=== PATIENT | male | born 1955 | race Caucasian/White ===

== ENCOUNTER 2016-08-13 10:44 | Emergency (ER) | payer OTHER ==
[~2016-08-13] VITALS: Ht 185.4 cm; Wt 109.6 kg
[2016-08-13 12:34] LABS: HEMATOCRIT 43.8 % (38.0-50.0); MCH 29.2 PG (29.0-34.0); MCHC 33.6 G/DL (30.0-36.0); MCV 86.9 FL (86-99); MEAN PLAT.VOLUME 10.3 uM^3 (9.0-12.4); PLATELET COUNT 255 K/uL (156-360); RBC DIS.WIDTH-SD 40.7 % (39-53); RED BLOOD COUNT 5.04 M/uL (4.00-5.50); WHITE BLOOD COUNT 8.3 K/uL (4.1-10.2)
[2016-08-13 12:45] LABS: CHLORIDE 107 mEq/L (99-109); POTASSIUM 4.1 mEq/L (3.7-5.4); SODIUM 139 mEq/L (136-147)
[2016-08-13 12:47] LABS: GLUCOSE 94 mg/dL (70-99)
[2016-08-13 12:48] LABS: ANION GAP 7 MEQ/L (2-14)
[2016-08-13 12:51] LABS: GFR ESTIMATE (CALCULATED) > 59 mL/min/
[2016-08-13 12:52] LABS: UREA NITROGEN (BUN) 24 mg/dL (9-23)
[2016-08-13 12:54] LABS: TROP-I INTERPRETATION NEGATIVE; TROPONIN-I < 0.01 ng/mL (0.0-0.30)
[2016-08-13 13:54] LABS: D-DIMER ELISA 0.29 mg/L FEU (< 0.57)
[2016-08-13 15:19] LABS: TROP-I INTERPRETATION NEGATIVE; TROPONIN-I < 0.01 ng/mL (0.0-0.30)
[2016-08-13 16:37] VITALS: BP 138/75
== END 2016-08-13 16:49 | disposition home or self-care (01) ==
LOC: EME 10:44
PROVIDERS: Emergency Medicine
DX: R07.9 Chest pain, unspecified (principal); I10 Essential (primary) hypertension
CPT/HCPCS: 71020; 80048; 84484; 85027; 85379; 93005; 99281; 99285